=== PATIENT | female | born 1985 | race Caucasian/White ===

== ENCOUNTER → 2023-05-28 15:10 | Outpatient (BNVA) | payer OTHER, SELFPAY | PROVIDERS: PCP Internal Medicine; Visit Provider Physician Assistant Surgical ==

== ENCOUNTER 2023-06-24 15:28 | Outpatient (AMB) | payer OTHER, SELFPAY ==
--- NOTE | 2023-06-24 15:33 | MHC.OFFVISWM ---
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 medical weight loss program. She heard about our program from working here in the past. Her goal is to lose weight and achieve a healthy lifestyle as well as to improve, if not resolve, obesity related medical conditions, including arthritis and possible sleep apnea based on her stating she snores excessively and she wakes up w [facility]. She is scheduled for sleep study through [facility]. . She reports first being concerned about her weight lifelong, highest weight to date was 215. Current weight is 208.4 pounds with a BMI of 33.6. She has tried multiple methods of weight loss including fad diets without permanent results. She lives with her and kids. 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 She wakes at:?530 am, and goes to bed at?1030 pm. Dinner is at 530-6 pm. Breakfast: muffin AM snack: skip Lunch: chicken wrap w FF PM snack: chips Dinner: tacos, shephards pie, fast food 1 x per week After dinner: chocolate, ice cream Other snacks: candy Liquids: 60-72 oz seltzer daily (5-6 cans), 2 x per month large coke, no juice Alcohol/marijuana/tobacco intake: no etoh, no cannabis, no tobacco Exercise: none, gym membership at [facility]. GERD score: 0 BI score: 2 ESS score: 8 QOL score: 80 PFSH Surgical History History of Mohs micrographic surgery for skin cancer Hx of wisdom tooth extraction Hx of cholecystectomy Family History Mother Leukemia Lymphoma Maternal Aunt Skin cancer Social History Alcohol intake: never Patient Tobacco Use Status: Never used Tobacco Review of Systems Const All systems reviewed & are unremarkable except as noted in HPI and below Physical Exam Vital Signs: Last Vital Signs Temp 97.9 F 06/24/23 15:43 Pulse 78 06/24/23 15:43 BP 128/76 06/24/23 15:43 Pulse Ox 97 06/24/23 15:43 Oxygen Delivery Method Room Air 06/24/23 15:43 BMI result Body Mass Index 33.6 Const General: cooperative, healthy appearing and no acute distress Orientation/consciousness: patient oriented x3 HEENT Head: Yes normal to inspection Ears: hearing grossly normal bilaterally General nose exam: Normal external nose present Face and sinus: Yes normal facial exam Eyes General: appearance normal, both eyes and all related structures Resp Effort & Inspection: normal respiratory effort Auscultation: clear to auscultation bilaterally Cardio Rate: regular rate Rhythm: regular rhythm Heart sounds: S1 normal heart sound present and S2 normal heart sound present GI Inspection: Yes normal to inspection, No distended and Yes obesity Palpation (GI): Soft to palpation, nontender and no guarding Auscultation: normal bowel sounds Skin General skin exam: no rashes or lesions noted Neuro General: patient oriented x3 Extrem General: No edema Psych Appearance: grossly normal Mental Status: mental status grossly normal Speech and movement: Normal speech and movement present Affect: normal affect Attitude: cooperative Assessment & Plan Assessment & Plan (1) Obesity (BMI 30-39.9): Code(s): E66.9 - Obesity, unspecified Plan: This is a?38 yo female who will start our MWL program.? She will be given follow-up appointments over the next 3 months. Additionally, she did mention possible surgical intervention. She will additionally follow through with her sleep study and if positive, this may be an additional qualify her for her insurance to cover a surgical intervention. ? Adequate sleep of 7-8 hours per night discussed, awakening at 530 am and going to bed about 1030 pm ? You mentioned you have already purchased a body composition scale so be sure and check weight weekly. The best time to do this is first thing in the morning after going to the bathroom. 1. Nutritional counseling: Be sure to careful read the number of scoops per shake Start with 2 celebrate rebuild shakes ([facility] [employer], [employer], [employer]), (1.5 scoops in 12 oz unsweetened almond milk) First shake at 630am-830am, Second shake at 930am-1130am 2 protein bars ([employer] bars at [facility] [employer], [employer], [employer]) First bar at 1230pm-230pm. Dinner at 530pm (7 forks of protein and 7 forks of salad/vegetables). Meal to include lean meat (beef, fish, pork, turkey, chicken), cooked vegetables or a salad with olive oil and/or fruits (berries, pears, apples, kiwi). Avoid salt, breads, potatoes, rice, pasta, desserts. Another bar at 730pm-930pm. Try to drink 64 oz of water daily and avoid soda and juices. ?2. Each shake would be drunk slowly, like coffee in a period of 2 hours. ?3. Cut each bar in 4 pieces and eat each piece in 30 min ?to make each bar last 2 hours. ?4. I emphasized the importance of measuring accurately the food portion and measure it carefully when serving the food on the plate ?5. The meal portions include 7 full-size forks of meat and 7 full-size forks of salad. You always eat the meat portion but you can replace up to half of the forks of salad/vegetables with rice, potatoes or pasta, or a fruit ?if you like. The less you do it the better weight loss will be. ?6. One full-size fork is what can be scooped on the fork without falling aside and not what can be bit with the fork. Use regular forks like those you find in a typical restaurant. ?7.? Please send me weight measurements as soon as possible and then once a week. Always include your diet and exercise plan. Alternatively come weekly at the office for weight checks and send me the measurements. ?8. Exercise counseling: Begin by watching a stretching for beginners video. Start slowly and begin to stretch your muscles. You should do this before and after each exercise session to prevent injury. Please return to [facility] gym near your home. Ask the manager meat or one of the trainers how to use the machines if you are unfamiliar with them. Start elliptical with a resistance of 2. Increase resistance by 1 every 3 min to your most comfortable resistance with a max resistance of 8. Reduce the resistance by 1 every 3 minutes back down to 2 and repeat cycles for 300 calories. Alternatively, start treadmill with a speed of 3.0 and incline of 0, increasing incline by 1 every 3 minutes to the highest comfortable level (max 6 for now) then decrease in the same fashion. Repeat process to a goal of 300 calories. Goal of 2000 calories burned or more weekly. You may also consider use of the stationary bike. The easiest would be to chose the fat-burn or interval training program on the machine and do this until you reach the 300 calorie goal. Alternatively, you can manually adjust the resistance in a similar fashion as mentioned above, (resistance of 2-8 with a goal speed of 12 mph). Tracking calories is essential. 9. Alternatively start walking outside daily, tracking calories with a goal of 300 calories per day, daily. You can download the [email or web address] which can track your time, distance and calories while walking outside. You press start in the anna when you start and then stop when you are finished. 10.? It is important to communicate by text weekly your weight measurement from your scale and if you are having any problems. 11. Please follow the diet plan exactly, without any change. If you do not like something about the plan or you feel hungry, you need to communicate with me so I can help you revise the plan. You should not change the plan yourself. Text me at [phone] 12. Goal is to lose at least 8-10 pounds in the first month Patient is morbidly obese and is not considered stable at this time.?I spent a total of 70 minutes reviewing/updating records, examining the patient and counseling the patient on weight management as detailed above. (2) Snoring: Code(s): R06.83 - Snoring Plan: She states that she has requested a referral for sleep study. I informed her to check with her primary care physician and if this has not gone through, we can certainly help. Coding Level of Care Code New Pt Level 5 (37628) Diagnoses Obesity (BMI 30-39.9) E66.9 Snoring R06.83 Time Spent (min) 70
[2023-06-24 15:43] VITALS: BP 128/76; PULSE 78; TEMP 36.6; O2SAT 97; BMI 33.6
== END 2023-06-24 16:51 | disposition home or self-care (01) ==
PROVIDERS: PCP Internal Medicine; Visit Provider Physician Assistant Surgical
DX: E66.9 Obesity, unspecified (principal); Z68.33 Body mass index [BMI] 33.0-33.9, adult; R06.83 Snoring
CPT/HCPCS: 99205

== ENCOUNTER → 2023-06-24 15:28 | Outpatient (BNVA) | payer OTHER, SELFPAY | PROVIDERS: PCP Internal Medicine; Visit Provider Physician Assistant Surgical ==

== ENCOUNTER 2023-08-26 16:21 | Outpatient (AMB) | payer OTHER, SELFPAY ==
--- NOTE | 2023-08-26 08:08 | A.OFFVIS_ITS ---
VS Expanded 08/26/23 08:09 Height 5 ft 6 in Weight 196 lb 12.8 oz BMI 31.8 Body Fat % 39.4 Body Fat Mass 77.6 Fat Free Mass 119.2 Visceral Fat Rating 14 Body Water % 41.6 Body Water Mass 81.8 Muscle Mass/Score 112.2 Basal Metabolic Rate/Score 1,529 Intake Visit Reasons: (TV) F/U MWL Allergies Sulfa (Sulfonamide Antibiotics) Adverse Reaction (Intermediate, Verified 06/24/23 15:33) Rash HPI Comments Details: Patient is a pleasant 38-year-old female who returns to the office today in follow-up. She is participating in the medical weight loss program. Her initial visit was on 06/24/2023 with a weight of 208.4 lb and a BMI of 33.6. Weight today is 196.8 lb and a BMI of 31.8. This corresponds to 11.6 lb weight loss. Since her initial visit, she is noticing her clothes are fitting better. She had a f/u abdominal US and no change to fatty liver over the last year. She states she has been able to stick to the meal plan mostly, 5 of 7 days of the week. Meal plan: 2 celebrate rebuild shakes, (1.5 scoops in 12 oz unsweetened almond milk) First shake at 630am-830am, Second shake at 930am-1130am 2 protein bars ([employer]) First bar at 1230pm-230pm. Dinner at 530pm (7 forks of protein and 7 forks of salad/vegetables). Another bar at 730pm-930pm. Drinking 30 oz water and 24 oz selzer, no soda or juice Exercise plan: playing in the yard w the kids no formal exercise has gym membership [facility] Surgical History History of Mohs micrographic surgery for skin cancer Hx of wisdom tooth extraction Hx of cholecystectomy Family History Mother Leukemia Lymphoma Maternal Aunt Skin cancer Social History Alcohol intake: never Patient Tobacco Use Status: Never used Tobacco Physical Exam Vital Signs: BMI result Body Mass Index 31.8 Telehealth Telehealth Telehealth Platform: Telephone Location of provider rendering services: practice address Location of patient: address on file Patient Identification confirmed using: Name, : Yes Telehealth method: voice only Patient verbally consented to treatment: Yes Patient verbally consented to billing insurance company: Yes Patient informed of any privacy concerns related to visit: Yes Minutes spent on Phone/Video with Pt.: 15 Assessment & Plan Assessment & Plan (1) Obesity (BMI 30-39.9): Code(s): E66.9 - Obesity, unspecified Category: Medical Plan: Making slow but steady progress. Overall, she feels much better and her clothes are fitting better. We will change meal plans slightly: 2 celebrate rebuild shakes, (1 scoop in 12 oz unsweetened almond milk) First shake at 630am-830am, Second shake at 930am-1130am 2 protein bars ([employer] bars) First bar at 1230pm-230pm. Dinner at 530pm (7 forks of protein and 7 forks of salad/vegetables). Another bar at 730pm-930pm. Discussed the critical nature of incorporating exercise. She has a membership at the [facility]. Encouraged to start cardio activities including stationary bike, treadmill, elliptical. Specific recommendations were in my original plan and e-mail sent to her. We will have her return to the office in 4 weeks. She was encouraged to text weekly with her weight and if any questions or concerns.
[2023-08-26 08:09] VITALS: BMI 31.8
== END 2023-08-26 16:42 | disposition home or self-care (01) ==
LOC: HO.HBS 16:21
PROVIDERS: PCP Internal Medicine; Visit Provider Physician Assistant Surgical
DX: E66.9 Obesity, unspecified (principal)
CPT/HCPCS: 99213

== ENCOUNTER → 2023-08-26 16:21 | Outpatient (BNVA) | payer OTHER, SELFPAY | PROVIDERS: PCP Internal Medicine; Visit Provider Physician Assistant Surgical ==